=== PATIENT | male | born 1990 | race Caucasian/White ===

== ENCOUNTER 2017-04-26 14:08 | Emergency (ER) | payer MEDICARE ==
[~2017-04-26] VITALS: Ht 177.8 cm; Wt 68.0 kg
[~2017-04-26 14:08] MED LIST: BEN50 PO; LAM100 PO; PARO20TA51 PO; SER100 PO; SERT25TA77 PO
[2017-04-26 14:29] VITALS: BP_SYST 118
[2017-04-26] MEDS ORDERED: HYDROcodone/ACETAMIN 5-325 MG TAB (NORCO/ VICODIN) PO ONE (15:15)
[2017-04-26] MEDS ORDERED: BACITRACIN 1 GM OINT TP ONE (15:30)
[2017-04-26 16:04] VITALS: BP_SYST 126
== END 2017-04-26 16:04 | disposition home or self-care (01) ==
LOC: SED 14:08
DX: S62.326A Displaced fracture of shaft of fifth metacarpal bone, right hand, initial encounter for closed fracture (principal); F32.9 Major depressive disorder, single episode, unspecified; Z79.899 Other long term (current) drug therapy; W22.01XA Walked into wall, initial encounter; Y93.89 Activity, other specified; Y92.89 Other specified places as the place of occurrence of the external cause; Y99.8 Other external cause status
CPT/HCPCS: 99284